=== PATIENT | male | born 1990 | race Two or more races ===

== ENCOUNTER 2017-10-18 15:56 | Inpatient (IN) | payer OTHER ==
[~2017-10-18] VITALS: Ht 170.2 cm; Wt 56.0 kg
[2017-10-18] MEDS ORDERED: TDAP [DIPH/PERTUSSIS/TET] 0.5 ML VIAL IM ONE ×2 (17:30→18:17)
[2017-10-18] MEDS ORDERED: IV NS 0.9% 1,000 ML BAG IV ONE (18:00)
[2017-10-18] MEDS ORDERED: LEVETIRACETAM (250 MG) 250 MG TABLET PO ONE ×2 (18:16→18:30)
[2017-10-18 18:19] LABS: BASOPHILS % (AUTO) 0.4 % (0.0-2.0); EOSINOPHILS # (AUTO) 0.1 /CMM (0.0-0.7); EOSINOPHILS % (AUTO) 0.6 % (0.0-6.0); HEMATOCRIT 41 % (39-51); HEMOGLOBIN 14.2 g/dL (13.5-17.5); LYMPHOCYTES # (AUTO) 1.3 /CMM (0.8-4.8); MEAN CORPUSCULAR HEMOGLOBIN 30 PG (26.0-33.0); MEAN CORPUSCULAR HGB CONC 34 g/dl (31.0-36.0); MEAN CORPUSCULAR VOLUME 88 fL (80-96); MONOCYTES # (AUTO) 0.7 /CMM (0.1-1.30); MONOCYTES % (AUTO) 5.8 % (2.0-12.0); NEUTROPHILS # (AUTO) 9.8 /CMM (1.8-8.9); NEUTROPHILS % (AUTO) 82.2 % (43.0-81.0); PLATELET COUNT (AUTO) 292 /CMM (150-450); RDW COEFFICIENT OF VARIATION 12.3 (11.5-15.0); RED BLOOD CELL COUNT(AUTO) 4.72 MIL/uL (4.5-6.0); WHITE BLOOD COUNT (AUTO) 11.9 K/uL (4.3-11.0)
[2017-10-18 18:29] LABS: CALCIUM, SERUM 8.6 mg/dL (8.5-10.1); CARBON DIOXIDE 27 mmol/L (21-32); CHLORIDE 108 mmol/L (98-107); CREATININE 0.8 mg/dL (0.6-1.3); GLUCOSE 105 mg/dL (74-106); POTASSIUM 4.1 mmol/L (3.5-5.1); SODIUM SERUM 140 mmol/L (136-145); UREA NITROGEN, BLOOD 10 mg/dL (7-18)
[2017-10-18 18:35] LABS: ALANINE AMINOTRANSFERASE 22 U/L (12-78); ALBUMIN 3.9 g/dL (3.4-5.0); ALCOHOL, BLOOD < 3 mg/dL (0-0); ALKALINE PHOSPHATASE 62 U/L (46-116); ASPARTATE AMINOTRANSFERASE 29 U/L (15-37); BILIRUBIN,TOTAL 0.2 mg/dL (0.2-1.0); INR 0.94 (0.87-1.13); PROTHROMBIN TIME 9.8 SECS (9.5-12.7); TOTAL PROTEIN, SERUM 6.7 g/dL (6.4-8.2)
--- NOTE | 2017-10-18 19:00 | NUR ---
PATIENT PLACED TO ED 01
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
[2017-10-18] MEDS ORDERED: ACETAMINOPHEN 325 MG TABLET PO PRN (19:30)
[2017-10-18] MEDS ORDERED: MAG HYDROX/AL HYDROX/SIMETH 30 ML UDC PO PRN (19:30)
[2017-10-18] MEDS ORDERED: Z GUARD REMEDY 2 OZ OINT TP PRN (19:30)
[2017-10-18] MEDS ORDERED: ONDANSETRON HCL/PF 4 MG/2 ML VIAL IVP PRN (19:30)
[2017-10-18] MEDS ORDERED: HYDROCODONE/APAP 10/325MG 1 EA TABLET PO PRN (19:30)
[2017-10-18] MEDS ORDERED: MAGNESIUM HYDROXIDE 30 ML UDC PO PRN (19:30)
[2017-10-18] MEDS ORDERED: HYDROCODONE/APAP 5/325MG 1 EACH TABLET PO PRN (19:30)
--- NOTE | 2017-10-18 19:36 | NUR ---
Assumed care of pt. pt asleep in bed w/ resp even & unlabored, nad noted. pt on continuous pulse-ox w/ cardiac monitoring. No ICU beds at this time. Awaiting admission.
--- NOTE | 2017-10-18 21:48 | NUR ---
PT CONTINUES TO REST IN BED W/ RESP EVEN & UNLABORED, NAD NOTED. ON CONTINUOUS MONITORING.
[2017-10-19] VITALS (15 sets, daily range): BP systolic 93–131; BP diastolic 44–76
--- NOTE | 2017-10-19 01:16 | NUR ---
No change in pt status, asleep in bed w/ VSS, nad noted. Awaiting ICU admission.
--- NOTE | 2017-10-19 03:39 | NUR ---
Report given to Sidney EXECUTIVE PILOT for pt admission to ICU.
[2017-10-19] MEDS ORDERED: ACETAMINOPHEN 325 MG TABLET PO PRN (03:45)
[2017-10-19] MEDS ORDERED: ONDANSETRON HCL/PF 4 MG/2 ML VIAL IVP PRN (03:45)
[2017-10-19] MEDS ORDERED: MAGNESIUM HYDROXIDE 30 ML UDC PO PRN (03:45)
[2017-10-19] MEDS ORDERED: HYDROCODONE/APAP 5/325MG 1 EACH TABLET PO PRN (03:45)
[2017-10-19] MEDS ORDERED: HYDROCODONE/APAP 10/325MG 1 EA TABLET PO PRN (03:45)
[2017-10-19] MEDS ORDERED: MAG HYDROX/AL HYDROX/SIMETH 30 ML UDC PO PRN (03:45)
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
--- NOTE | 2017-10-19 06:00 | NUR ---
HAIRSPRING VIBRATOR PT EASILY AROUSEABLE. FOLLOWING COMMANDS. SPEECH CLEAR.
[2017-10-19 06:59] LABS: BASOPHILS % (AUTO) 0.5 % (0.0-2.0); EOSINOPHILS # (AUTO) 0.2 /CMM (0.0-0.7); EOSINOPHILS % (AUTO) 2.5 % (0.0-6.0); HEMATOCRIT 37 % (39-51); LYMPHOCYTES % (AUTO) 26.4 % (20.0-44.0); MEAN CORPUSCULAR HEMOGLOBIN 31 PG (26.0-33.0); MEAN CORPUSCULAR HGB CONC 35 g/dl (31.0-36.0); MEAN CORPUSCULAR VOLUME 89 fL (80-96); MONOCYTES # (AUTO) 0.6 /CMM (0.1-1.30); MONOCYTES % (AUTO) 7.5 % (2.0-12.0); NEUTROPHILS # (AUTO) 4.7 /CMM (1.8-8.9); NEUTROPHILS % (AUTO) 63.1 % (43.0-81.0); PLATELET COUNT (AUTO) 222 /CMM (150-450); RDW COEFFICIENT OF VARIATION 13.1 (11.5-15.0); RED BLOOD CELL COUNT(AUTO) 4.19 MIL/uL (4.5-6.0); WHITE BLOOD COUNT (AUTO) 7.4 K/uL (4.3-11.0)
[2017-10-19 07:32] LABS: CALCIUM, SERUM 8.2 mg/dL (8.5-10.1); CREATININE 0.7 mg/dL (0.6-1.3); MAGNESIUM 1.8 mg/dL (1.8-2.4); PHOSPHORUS 3.3 mg/dL (2.5-4.9)
--- NOTE | 2017-10-19 08:00 | NUR ---
VISUAL EFFECTS ARTIST NO CHANGE IN NEURO STATUS. EASILY AROUSEABLE.
[2017-10-19] MEDS ORDERED: LEVETIRACETAM (250 MG) 250 MG TABLET PO SCH (09:00)
[2017-10-19] MEDS: LEVETIRACETAM (250 MG) 250 MG TABLET PO SCH ×2 (09:28→21:41)
--- NOTE | 2017-10-19 10:00 | NUR ---
HYDRATION PLANT OPERATOR NO NEURO CHANGES SEEN. PT DOWNGRADED TO TELE STATUS. AWAITING BED ASSIGNMENT.
--- NOTE | 2017-10-19 11:20 | NUR ---
RECEIVED TELEPHONE REPORT FROM CALLY HEARD FROM ICU FOR A TRANSFER. AWAITING FOR PATIENT'S ARRIVAL
--- NOTE | 2017-10-19 11:40 | NUR ---
FIRST LINE SUPERVISOR RECEIVING NOTE RECEIVED PATIENT VIA GURNEY FROM ICU. PATIENT IS ASSISTED TO BED SAFELY. BED IS LOCKED IN LOWEST POSITION, SIDE RAILS UP X2. CALL LIGHT WITHIN REACH. PATIENT EDUCATED TO USE THE CALL LIGHT TO CALL FOR ASSISTANCE. VERBALIZED FULL UNDERSTANDING. PATIENT IS A/O X3, AWAKE AND RESPONSIVE. DENIES PAIN/DISCOMFORT AT THIS TIME. PATIENT IS AMBULATORY. CHEST IS RISING EQUALLY BILATERALLY. SPO2 98% ON RA. Addendum: 10/19/17 at 1235 by DANO FONSECA RN WILL CONTINUE TO ASSESS/MONITOR THROUGHOUT THE SHIFT.
--- NOTE | 2017-10-19 11:40 | NUR ---
SMOKED MEAT PREPARER PT TRANSFERRED TO TELE BY EZ WITH MONITOR. REPORT GIVEN TO 3W RN. NO NEW NUERO CHANGES SEEN
--- NOTE | 2017-10-19 19:00 | NUR ---
PATIENT ACCIDENTLY DISLODGED THE IV CATHETER. OCLUSIVE DRESSING APPLIED. NEW IV IS STARTED ON THE OPPOSITE ARM. PATIENT TOLERATED THE PROCEDURE WELL
--- NOTE | 2017-10-19 19:05 | NUR ---
POLICY AND PLANNING MANAGER CLOSING NOTE PATIENT IS IN BED, ALERT/ORIENTED X4, AWAKE AND COOPERATIVE. PATIENT IS IN BED HAVING COFFEE. BED IS LOCKED IN LOWEST POSITION, SIDE RAILS UP X2. CALL LIGHT WITHIN REACH. PATIENT EDUCATED TO USE THE CALL LIGHT TO CALL FOR ASSISTANCE. VERBALIZED FULL UNDERSTANDING. DENIES PAIN/DISCOMFORT AT THIS TIME. PATIENT IS AMBULATORY. CHEST IS RISING EQUALLY BILATERALLY. SPO2 99% ON RA. ALL NEEDS ARE MET AT THIS TIME. WILL ENDORSE TO THE CUSTOMS COLLECTOR NURSE FOR [place]ANIA.
--- NOTE | 2017-10-19 19:38 | NUR ---
TELE/RN NOTES RECEIVED PT. SITTING UP IN BED. PT. IS AWAKE, ALERT AND ORIENTED X4. BREATHING EVEN AND UNLABORED ON ROOM AIR. NO SOB, RESPIRATORY DISTRESS OR COMPLAINTS OF PAIN NOTED AT THIS TIME. PT. WITH EXTERNAL BARGE MASTER PRESENT AND INTACT. CURRENT RHYTHM = SINUS RHYTHM HR 84. PT. WITH LEFT FOREARM 22 GAUGE IV SALINE LOCK PRESENT, PATENT AND INTACT. BED LOCKED AND IN LOWEST POSITION, SIDE RAILS UP X2, CALL LIGHT WITHIN REACH, WILL CONTINUE TO MONITOR.
[2017-10-20] VITALS: BP 121/66
[2017-10-20 04:00] VITALS: BP 101/64
--- NOTE | 2017-10-20 06:31 | NUR ---
TELE/RN NOTES PT. IS LYING IN BED RESTING. PT. IS EASILY AROUSABLE TO NAME. AWAKE, ALERT AND ORIENTED X3. BREATHING EVEN AND UNLABORED ON ROOM AIR. NO SOB, RESPIRATORY DISTRESS OR COMPLAINTS OF PAIN NOTED AT THIS TIME. PT. WITH EXTERNAL MAGNETIC RESONANCE IMAGING DIRECTOR PRESENT AND INTACT. CURRENT RHYTHM = SINUS ALVIN HR 56. PT. WITH LEFT FOREARM 22 GAUGE IV SALINE LOCK PRESENT, PATENT AND INTACT. ALL PT. NEEDS MET. FREQUENT NEURO CHECKS PERFORMED NO ABNORMALITIES NOTED. BED LOCKED AND IN LOWEST POSITION, SIDE RAILS UP X2, CALL LIGHT WITHIN REACH, WILL ENDORSE TO DAYSHIFT NURSE FOR CONTINUITY OF CARE.
[2017-10-20 08:00] VITALS: BP 98/50
--- NOTE | 2017-10-20 08:18 | NUR ---
RN INITIAL NOTES Received pt laying in bed. a/o x4, respirations are even and unlabored, not in any acute distress noted. IV to Left AC intact and patent. Dressing kept clean and dry. Pt c/o headache, noted with left periorbital facial hematoma. Skin is intact. Will continue to monitor and notify MD. Reminded pt to use call light when assistance is needed. Call light left within reach.
[2017-10-20] MEDS: LEVETIRACETAM (250 MG) 250 MG TABLET PO SCH (08:41)
[2017-10-20 10:00] VITALS: BP 98/50
--- NOTE | 2017-10-20 15:45 | NUR ---
RN CLOSING NOTES 1531 Patient discharged to home via bus in medically stable condition. Pt remains a/o x4, respirations are even and unlabored, not in any acute distress noted. Pt denies any pain at this time. Still noted w/ subdural hematoma, denies any vision changes. All due medications given, needs met and rendered. Explained discharge paperwork to pt with verbal understanding. Pt stated he has a home to go to and will take the bus. Pt came with no belongings including wallet and money. Called Nursing airport ramp supervisor for tokens. IV to LFA removed w/ no significant amount of bleeding. Accompanied pt to lobby, tokens given and ID bands removed. Pt left in stable condition.
== END 2017-10-20 15:30 | disposition home or self-care (01) | DRG 87 ==
LOC: ER 15:59 → ICU 10-19 03:46 → TELE 10-19 11:30 → MED 10-20 10:02
PROVIDERS: ADMIT Nurse Practitioner Acute Care; ATTEND Nurse Practitioner Acute Care
DX: S06.5X0A Traumatic subdural hemorrhage without loss of consciousness, initial encounter (principal); D72.829 Elevated white blood cell count, unspecified; F17.210 Nicotine dependence, cigarettes, uncomplicated; T14.8XXA Other injury of unspecified body region, initial encounter; R51 Headache; S05.12XA Contusion of eyeball and orbital tissues, left eye, initial encounter; X58.XXXA Exposure to other specified factors, initial encounter; Y93.9 Activity, unspecified; Y92.9 Unspecified place or not applicable; Z72.89 Other problems related to lifestyle; Z71.6 Tobacco abuse counseling
CPT/HCPCS: 36415; 70450-TC; 70486-TC; 71045-TC; 72125-TC; 73030-TC; 80048-TC; 80061-TC; 80076-TC; 83735-TC; 84100-TC; 85025-TC; 85730-TC; 86850-TC; 87081-TC; 90715; A4606; G0480; J7030; Z7610